=== PATIENT | female | born 1980 ===

== ENCOUNTER 2016-08-14 13:47 | Emergency (ER) | payer MEDICAID, OTHER ==
[2016-08-14 13:47] VITALS: BMI 26.4
[2016-08-14 14:50] VITALS: RESP 16; TEMP 98; O2SAT 98
--- NOTE | 2016-08-14 16:00 | ED PDOC ---
Syncope/Near Syncope/Dizzyness Time Seen by Provider: 08/14/16 15:41 Chief Complaint (Nursing): Dizziness/Lightheaded Chief Complaint (Provider): dizziness History Per: Patient History/Exam Limitations: no limitations Onset/Duration Of Symptoms: Days (x 2) Current Symptoms Are (Timing): Still Present Additional Complaint(s): Danielle Robledo is a 36 year old female, with a previous medical history of preeclampsia, who presents to the ED with complaints of dizziness ongoing for the past 2 days. Patient reports being approximately 8 weeks and stating symptoms are consistent with previous where she was diagnosed with preeclampsia. Patient denies any changes in vision, seizures or swelling in the extremities. PMD: Past Medical History Reviewed: Historical Data, Nursing Documentation, Vital Signs Vital Signs: Last Vital Signs Temp 98.0 F 08/14/16 14:48 Pulse 91 H 08/14/16 14:48 Resp 16 08/14/16 14:48 BP 142/86 08/14/16 14:48 Pulse Ox 98 08/14/16 14:48 - Medical History PMH: Denies: Diabetes, Hepatitis, HIV, HTN, Seizures, Sexually Transmitted Disease Other PMH: preeclampsia - Family History Family History: States: Unknown Family Hx - Social History Current smoker - smoking cessation education provided: No Alcohol: None Drugs: Denies - Home Medications Home Medications: Ambulatory Orders Medication Instructions Recorded Vitamins6 [ 1 tab PO QAM #30 tab 12/25/14 Vitamin] - Allergies Allergies/Adverse Reactions: Allergies Allergy/AdvReac Type Severity Reaction Status Date / Time No Known Allergies Allergy Verified 08/14/16 14:47 Review of Systems ROS Statement: Except As Marked, All Systems Reviewed And Found Negative Eyes: Negative for: Vision Change Musculoskeletal: Negative for: Other (swelling in the extremities) Neurological: Positive for: Dizziness. Negative for: Seizures Physical Exam - Reviewed Nursing Documentation Reviewed: Yes Vital Signs Reviewed: Yes - Physical Exam Appears: Positive for: Well, Non-toxic, No Acute Distress Head Exam: Positive for: ATRAUMATIC, NORMAL INSPECTION, NORMOCEPHALIC Skin: Positive for: Normal Color, Warm, Dry Cardiovascular/Chest: Positive for: Regular Rate, Rhythm Respiratory: Positive for: CNT, Normal Breath Sounds Gastrointestinal/Abdominal: Positive for: Normal Exam, Bowel Sounds, Soft. Negative for: Tenderness Extremity: Positive for: Normal ROM, Capillary Refill (< 2 seconds ). Negative for: Tenderness, Pedal Edema, Calf Tenderness, Deformity, Swelling (in all extremities) Neurologic/Psych: Positive for: Alert, Oriented - Laboratory Results Result Diagrams: 08/14/16 16:00 08/14/16 16:00 - ECG O2 Sat by Pulse Oximetry: 98 (RA) Pulse Ox Interpretation: Normal Medical Decision Making Medical Decision Making: Initial Impression: Dizziness Initial Plan: * blood type and screen * Beta-HCG quantitative * labs * urinalysis * US OB transvaginal * reevaluation Scribe Attestation: Documented by Flakita Womack, acting as a scribe for Idris Batres MD. Provider Scribe Attestation: All medical record entries made by the Scribe were at my direction and personally dictated by me. I have reviewed the chart and agree that the record accurately reflects my personal performance of the history, physical exam, medical decision making, and the department course for this patient. I have also personally directed, reviewed, and agree with the discharge instructions and disposition. Disposition - Clinical Impression Clinical Impression: - Patient ED Disposition Is Patient to be Admitted: No Counseled Patient/Family Regarding: Studies Performed, Diagnosis, Need For Followup - Disposition [facility] Disposition: Routine/Home Disposition Time: 19:32 Condition: FAIR Instructions: (ED)
[2016-08-14 16:45] LABS: BASO % 0.2 % (0.0-2.0); EOS % 0.3 % (0.0-4.0); HEMATOCRIT 40.2 % (34.0-47.0); LYMPH # 2.5 K/uL (1.0-4.3); LYMPH % 20.4 % (20.0-40.0); MEAN CELL VOLUME 88.3 fl (81.0-99.0); MEAN CORPUSCULAR HEMOGLOBIN 29.3 pg (27.0-31.0); MEAN CORPUSCULAR HGB CONC 33.2 g/dL (33.0-37.0); MEAN PLATELET VOLUME 8.9 fl (7.2-11.7); MONO % 8.4 % (0.0-10.0); NEUT # 8.6 K/uL (1.8-7.0); NEUT % 70.7 % (50.0-75.0); NRBC % 0.1 % (0.0-0.0); RED CELL DISTRIBUTION WIDTH 13.7 % (11.5-14.5); WHITE BLOOD COUNT 12.2 K/uL (4.8-10.8)
[2016-08-14 16:52] LABS: RBC URINE 1 /hpf (0-3); URINE BACTERIA FEW (<OCC); URINE BILIRUBIN NEGATIVE (NEGATIVE); URINE BLOOD NEGATIVE (NEGATIVE); URINE COLOR YELLOW (YELLOW); URINE GLUCOSE (UA) NEG (Normal); URINE KETONE NEGATIVE (NEGATIVE); URINE LEUKOCYTE ESTERASE NEG Leu/uL (Negative); URINE PROTEIN NEGATIVE (NEGATIVE); URINE UROBILINOGEN 0.2-1.0 mg/dL (0.2-1.0); WBC URINE 1 /hpf (0-5)
[2016-08-14 16:54] VITALS: BP 124/71; PULSE 68
[2016-08-14 16:58] LABS: ALB/GLOB RATIO 1.2 (1.0-2.1); ALKALINE PHOSPHATASE 63 U/L (38-126); ALT/SGPT 43 U/L (9-52); AST/SGOT 31 U/L (14-36); BILIRUBIN,TOTAL 0.4 mg/dl (0.2-1.3); BLOOD UREA NITROGEN 6 mg/dl (7-17); CARBON DIOXIDE 24 mmol/L (22-30); CHLORIDE 104 mmol/L (98-107); GFR AFRICAN-AMERICAN > 60; GLUCOSE,RANDOM 83 mg/dL (65-105); POTASSIUM 3.7 MMOL/L (3.6-5.0); SODIUM 137 mmol/l (132-148); TOTAL PROTEIN 7.7 G/DL (6.3-8.2)
--- NOTE | 2016-08-15 11:04 | US ---
PROCEDURE: OB Pelvic Ultrasound HISTORY: r/o ectopic COMPARISON: None available. FINDINGS: UTERUS: Fetus A: Single Live intrauterine gestation. CRL equivalent to 8 weeks and 4 days wks/days gestatioin pole and yolk sac are visualized. Date of delivery (Ultrasound estimated) : 03/22/2017 Heart rate: 164 bpm. Karol-gestational hemorrhage: None. Fetus B: Single Live intrauterine gestation. CRL equivalent to 8 weeks and 5 days gestatioin pole and yolk sac are visualized. Date of delivery (Ultrasound estimated) : 03/10/2017 Heart rate: 163 bpm. Karol-gestational hemorrhage: None. Uterus measures 11.7 x 5.5 x 0.0 cm. No mass CERVIX: Long and closed. No cervical abnormality seen. RIGHT OVARY: Not visualized. LEFT OVARY: Measures 2.1 x 1.4 x 2.1 cm. No mass. Normal flow. FREE FLUID: None. OTHER FINDINGS: None. IMPRESSION: Twin live intrauterine gestations. The expected date of delivery 4 for fetus A is 03/22/2017 and corresponds with the clinical dates. The expected date of delivery for fetus B is 03/10/2017 and there is a discrepancy with the clinical dates of about 11 days. Clinical follow-up is advised.
== END 2016-08-14 19:53 | disposition home or self-care (01) ==
LOC: H.ER 13:47
DX: R42 Dizziness and giddiness (principal); Z33.1 Pregnant state, incidental

== ENCOUNTER 2017-02-12 15:38 | Inpatient (IN) | payer MEDICAID, SELFPAY ==
[2017-02-12 16:20] VITALS: BMI 30.5
[2017-02-12] MEDS ORDERED: ceFAZolin 2 GM in Sodium Chloride 0.9% 100 ML IVPB ONE (17:00)
[2017-02-12] MEDS ORDERED: Lactated Ringer's 1,000 ML IV SCH ×4 (17:00→22:51)
[2017-02-12] MEDS ORDERED: Oxytocin 30 units/LR 500ML 30 U/500 ML BAG IV ONE (17:28)
[2017-02-12 17:34] LABS: BASO % 0.5 % (0.0-2.0); EOS % 0.6 % (0.0-4.0); HEMATOCRIT 39.8 % (34.0-47.0); LYMPH # 2.2 K/uL (1.0-4.3); LYMPH % 31.9 % (20.0-40.0); MEAN CORPUSCULAR HEMOGLOBIN 30.9 pg (27.0-31.0); MEAN CORPUSCULAR HGB CONC 33.2 g/dL (33.0-37.0); MEAN PLATELET VOLUME 10.6 fl (7.2-11.7); MONO # 0.6 K/uL (0.0-0.8); NEUT # 4.1 K/uL (1.8-7.0); NRBC % 0.1 % (0.0-0.0); RED CELL DISTRIBUTION WIDTH 14.6 % (11.5-14.5)
[2017-02-12] MEDS ORDERED: HYDROmorphone 1 mg/ml ISec IVP PRN (17:56)
[2017-02-12] MEDS ORDERED: Morphine 1 mg/ml preservative-free Inj(Duramorph) ONE (18:04)
[2017-02-12] MEDS ORDERED: Phenylephrine 10 mg/ml Inj ONE (18:04)
[2017-02-12] MEDS ORDERED: HYDROmorphone 0.5 mg/0.5 ml ISec IVP PRN ×2 (18:15→22:51)
[2017-02-12] MEDS ORDERED: Oxycodone/Acetaminophen 5/325 mg Tab PO PRN ×3 (22:32→22:51)
--- NOTE | 2017-02-13 00:30 | OBADHP ---
Datetime: 02/12/2017 17:30 Admit Comment, IP Provider: 37 yo at 34.3weeks with twin IUP sent to [facility] from [facility] in [place] due to contractions and pre-term labor. Pt's GRECIA is 03/23/17. Last vis it today in clinic, last u/s was yesterday. Reports movement, denies vaginal bleeding or loss o f fluid. Last sexual activity more than 1 month ago. Past OBhx: 1 NVD at 34 weeks due to preeclamsia. Denies other medical or any surgical hx. Social hx: denies tobacco, alcohol, drug use. Meds: vitamins, aspirin Allergies: NKDA Care: [facility]. care complicated by admission to [facility] for 1 mo on 12/25/16 because cervical length connor surament of 2.5 cm. During admission pt was managed with IV fluids, magnesium sulfate tocolysis, ster oids. Rhogam given on 12/26/16. ROS: denies CP, sob, nausea, headache, dizziness A: 37 yo at 34.3 wks twin gestation in pre-term labor P: admit to inpatient; initiate protocol Discussed with Dr. Andrews Addendum: I saw and examined patient at presentation. Patient 3-4 cm at presentation and patient complaining of increasing intensity of contractions. Discussed with patient the need for delivery due to active labor. Discussed with patient the risks, benefits, alternatives of delivery as well as the risks of prematurity. All patient questions answered. Both anesthesia and neonatology contacted. All patient questions answered Extremities - PN: Normal Abdomen - PN: Normal Back - PN: Normal Breast - PN: Not Done Lungs - PN: Normal Heart - PN: Normal Thyroid - PN: Not Done Neurologic - PN: Normal HEENT - PN: Normal General - PN: Normal IP Hx Assessment: The History has been Reviewed and is Current Vital Signs Provider: Reviewed IP Chief Complaint: Uterine contractions Dilatation, Provider: 3 Genitourinary Exam: Normal DTRs - PN: Not Done EGA AdmitDate IP: 34.3 IP Adm Impression: , intrauterine IP Admit Plan: Admit to unit; Initiate Section protocol
--- NOTE | 2017-02-13 00:38 | OBDS ---
DELIVERY PERSONNEL Delivery Doctor: Joe Andrews MD [employer] Business Intelligence Developer: Kary Joya RN Anesthesiologist: Mariela Mathis MD MATERNAL INFORMATION Delivery Anesthesia: Spinal Medications in Delivery: pitocin 30 units/500 ml, LR, Ancef 2 gms Estimated Blood Loss (ml): 800 Placenta Cultured: No Maternal Complications: None Provider Comments: Primary low flap transverse section via Pfannenstiel incision, bilateral tubal ligation in bilateral salpingectomy fashion. Patient delivered a viable infant male's Twin A: Male, vertex presentation, Apgars 9/9 Twin B: Male, complete breech presentation, Apgars 9/9 Normal uterus, normal tubes and ovaries bilaterally Estimated blood loss 800 mL Fluids 1500 mL lactated Ringer's Urine output 300 mL of clear urine No complications Patient tolerated procedure well LABOR SUMMARY EDC: 03/23/2017 00:00 No. Babies in Womb: 2 Attempted: No Labor Anesthesia: None LABOR INFORMATION Reason for Induction: Not Applicable Oxytocin: N/A Group B Beta Strep: N/A Antibiotics # of Doses: 1 Antibiotics Time of Last Dose: 1809 Steroids Given: Full Course; > 24 Hours before Delivery Reason Steroids Not Administered: Maternal Indication MEMBRANES Membranes Rupture Method: Artificial Rupture of Membranes: 02/12/2017 18:40 Length of Rupture (hrs): 0.00 Amniotic Fluid Color: Clear Amniotic Fluid Amount: Moderate Amniotic Fluid Odor: Normal STAGES OF LABOR Stage 3 hrs: 0 Stage 3 min: 1 CSECTION DELIVERY Primary Indication: Multiple Gestation CSection Urgency: Emergency CSection Incidence: Primary Labor: Labor Elective: Nonelective CSection Incision: Lower Uterine Transverse Other Sterilization Procedure: bilateral salpingectomy Uterine Closure: Double-layer closure BABY A INFORMATION Delivery Date/Time: 02/12/2017 18:40 Method of Delivery: Born in Route : No : N/A Forceps: N/A Vacuum Extraction: N/A Shoulder Dystocia : No SHOULDER DYSTOCIA BABY A Infant Delivery Date/Time: 02/12/2017 18:40 PRESENTATION/POSITION BABY A Presentation: Cephalic Cephalic Presentation: Vertex Breech Presentation: N/A PLACENTA INFORMATION BABY A Placenta Delivery Time : 02/12/2017 18:41 Placenta Method of Delivery: Manual Removal Placenta Status: Delivered SCORES BABY A Heart Rate 1 min: >100 bpm Resp Effort 1 min: Good Cry Reflex Irritability 1 min: Cough or Sneeze or Pulls Away Muscle Tone 1 min: Active Motion Color 1 min: Body [place], Extremities Blue Resuscitation Effort 1 min: Tactile Stimulation SCORE 1 MIN: 9 Heart Rate 5 min: >100 bpm Resp Effort 5 min: Good Cry Reflex Irritability 5 min: Cough or Sneeze or Pulls Away Muscle Tone 5 min: Active Motion Color 5 min: Body [place], Extremities Blue Resuscitation Effort 5 min: Tactile Stimulation SCORE 5 MIN: 9 INFANT INFORMATION BABY A Gestational Age at Delivery: 34.3 Gestational Status: Outcome : Liveborn Condition : Stable Sex: Male IDENTIFICATION/MEDS BABY A ID Band Number: [id number] ID Band Location: Left Leg; Left Arm WEIGHT/LENGTH BABY A Infant Birthweight (gms): 2445 Weight (lb): 5 Infant Weight (oz): 6 CORD INFORMATION BABY A No. Cord Vessels: 3 Nuchal Cord : N/A Nuchal Cord Other: N/A True Knot: N/A Infant Cord pH Baby Arterial: N/A Cord pH Baby Venous: N/A Cord Blood Taken: Yes Banking/Donate Info: N/A Infant Suction: Mouth; Nose ASSESSMENT BABY A Infant Complications: None Physical Findings at Delivery: Within Normal Limits Infant Respirations: Appears Normal Magnetic Grinder Operator/ALS Called : Yes Care By: Dr Ryder Transferred To: Nursery BABY B INFORMATION Delivery Date/Time: 02/12/2017 18:42 Method of Delivery : Born in Route : No : N/A Forceps : N/A Vacuum Extraction: N/A Shoulder Dystocia : No SHOULDER DYSTOCIA BABY B Infant Delivery Date/Time: 02/12/2017 18:42 PRESENTATION/POSITION BABY B Presentation : Breech Cephalic Position : N/A ROM/PLACENTA INFO BABY B Rupture of Membranes: 02/12/2017 18:40 Length of Rupture (hrs): 0.03 Placenta Delivery Time : 02/12/2017 18:43 Placenta Method of Delivery: Manual Removal Placental Status : Delivered SCORES BABY B Heart Rate 1 min: >100 bpm Resp Effort 1 min: Good Cry Reflex Irritability 1 min: Cough or Sneeze or Pulls Away Muscle Tone 1 min: Active Motion Color 1 min: Body [place], Extremities Blue SCORE 1 MIN: 9 Heart Rate 5 min: >100 bpm Resp Effort 5 min: Good Cry Reflex Irritability 5 min: Cough or Sneeze or Pulls Away Muscle Tone 5 min: Active Motion Color 5 min: Body [place], Extremities Blue SCORE 5 MIN: 9 INFORMATION BABY B Gestational Age at Delivery: 34.3 Gestational Status : Infant Outcome : Liveborn Condition : Stable Infant Sex : Male IDENTIFICATION/MEDS BABY B ID Band Number : [id number] ID Band Location : Left Leg; Left Arm WEIGHT/LENGTH BABY B Infant Birthweight (gms): 2400 Weight (lb) : 5 Weight (oz): 5 CORD INFORMATION BABY B No. Cord Vessels : 3 Nuchal Cord : N/A Nuchal Cord Other: N/A True Knot : N/A Infant Cord pH Arterial: N/A Cord pH Venous: N/A Cord Blood Taken : Yes Banking/Donate Info : N/A Suction : Mouth; Nose ASSESSMENT BABY B Infant Complications : None Physical Findings at Delivery: Within Normal Limits Respirations : Appears Normal Magnetic Grinder Operator/ALS Called : Yes Infant Care By : Dr Ryder Transfer To: [facility]
[2017-02-13 05:29] LABS: HEMATOCRIT 35.2 % (34.0-47.0); MEAN CORPUSCULAR HGB CONC 33.4 g/dL (33.0-37.0); RED CELL DISTRIBUTION WIDTH 14.5 % (11.5-14.5); WHITE BLOOD COUNT 13.1 K/uL (4.8-10.8)
[2017-02-13] MEDS: Oxycodone/Acetaminophen 5/325 mg Tab PO PRN (20:55)
[2017-02-14] MEDS: Oxycodone/Acetaminophen 5/325 mg Tab PO PRN (03:06)
[2017-02-14] MEDS ORDERED: Influenza Vaccine 18yr & older 0.5 ML/45 MCG SYR IM ONE (06:00)
--- NOTE | 2017-02-14 09:44 | OBPPN ---
Datetime: 02/14/2017 09:42 PP Pain Prov: Within normal limits PP Nausea Prov: Denies PP Flatus Prov: Yes PP BM Prov: No PP Breasts Prov: Not Done PP Heart Prov: Normal PP Lungs Prov: Normal PP Abdomen/Uterus Prov: Normal PP Lochia Prov: Not Done PP Vulva/Perineum Prov: Not Done PP CVA Tenderness Prov: Normal PP Extremities Prov: Normal PP C/S Incision Prov: Normal PP Plan Prov: Continue present management Vital Signs Provider PP: Reviewed; Within Normal Limits Datetime: 02/14/2017 06:16 PP Progress Prov: Normal PP Impression Prov: Normal progression PP Progress Note Prov: POD #2 S: 37y/o now s/p twin delivery with BTL seen and examined at bedside. No acute ove rnight events. Pt reports mild pelvic pain controlled with pain meds. OOB/Ambulation without dizzines s. Breast/Bottle feeding both infants without difficulty. Tolerating regular diet well. Lochia is sim ilar to menses volume. Voiding freely with no blood noted. No BM, + gas per rectum. Denies fever/chil ls, diarrhea, [place]/vomiting, CP/SOB, lightheadedness, calf pain. Declined circumcision for both infants O: BP 139/84 HR 85, Tmax 98.9 (no hypertensive episodes overnight) Post H/H: 11.7/35.2 Blood Type: 0 negative Both babies RH positive Rubella: immune, Flu shot updated Physical exam: General: A_O HEENT: White Sclera, pink conjunctiva, oral mucosa moist Breast: enjorged/non tender/no lesions CVS: RRR, nrml S1, S2, no murmurs Lungs: Clear to auscultation BL Abdomen: non distended, +BS, firm fundus @ umbilical level. Soft, appropriate TTP. Incision clean, erythema, active bleeding, or discharge Neuro/Psych: AAO x3, preserved affect and mood Assessment: 37 Y/o now s/p c section delivery on date 02/13 18:00 w/o complications. Pt afebrile overnigh t, tolerating pain with meds, adequate urine output. Doing well on POPD#2. No discussion on contracep tion as patient had BTL during c section. Plan: Rhogam administered yesterday with no complications Tolerating regular diet well Percocet 5/325mg 1-2 tablets po q6 for mod/sev pain Ibuprofen 600mg 1 tabZofran 4gm prn for nausea Encourage and ambulation Senakot 17.2mg qHS Will schedule f/u appt at [facility] Anticipated D/C to home on 02/16; Scripts in chart Nasim Millard, PGY1 OB Hospitalist note. On rounds this morning, I saw and examined this patient. Agree with note. LAWRENCE SILVERMAN IP PP Procedures: None
--- NOTE | 2017-02-15 09:57 | OBDCSUM ---
Datetime: 02/15/2017 09:08 Discharged to, Provider: Home Follow up at, Provider: [facility] Disch Instr Activity: Normal activity; May be up to bathroom; May be up for meals; May Shower Disch Instr Diet: Regular Discharge Instructions, Provider: Routine instructions given Discharge Diagnosis, Provider: Delivery Discharge Time: 02/15/2017 09:56 Follow up in weeks, Provider: in 1-2 weeks Disch Referrals: None Contraception discussed, Prov: Yes Disch Activity Restrictions: No exercising; No lifting; No driving; Minimize stair-climbing; No sexu al activity; Nothing in vagina - [place], tampons, douche Contraception after Delivery: Tubal Ligation
--- NOTE | 2017-02-15 09:57 | OBPPN ---
Datetime: 02/15/2017 08:55 PP Pain Prov: Within normal limits PP Nausea Prov: Denies PP Flatus Prov: Yes PP BM Prov: No PP Breasts Prov: Not Done PP Heart Prov: Normal PP Abdomen/Uterus Prov: Normal PP Lochia Prov: Normal PP Vulva/Perineum Prov: Normal PP CVA Tenderness Prov: Normal PP Extremities Prov: Normal PP C/S Incision Prov: Normal PP Progress Prov: Normal PP Impression Prov: Normal progression PP Plan Prov: Continue present management; Discharge PP Progress Note Prov: 37 y/o now POD #3 s/p twin delivery with BTL seen and examined at bedside this morn ing. Denies any acute overnight events. Pt reports mild pelvic pain controlled with pain meds. OOB/Am bulation without dizziness. Breast/Bottle feeding both infants without difficulty. Tolerating regular diet well. Lochia is similar to menses volume. Voiding freely with no blood noted. No BM, + gas per rectum. Denies fever/chills, diarrhea, nausea/vomiting, CP/SOB, lightheadedness or calf pain. Declined circumcision for both infants Physical Exam: General: A_O, resting comfortably in bed, NAD HEENT: white sclera, pink conjunctiva, oral mucosa moist. Lungs: CTA B/L, no wheezing, rhonchi or rales CVS: RRR, S1, S2 NL ABD: ND, +BS; Incision: clean, dry and intact. no induration, erythema or fluctuation. no dehiscence EXT: no edema, negative Dwayne's sign, calves nontender Neuro/psych: AAOX3, no grossly focal deficit, preserved affect and mood. Assessment: 37 y/o now s/p c section on POD #3 w/o complications. Pt is doing well. Plan: Discharge to home today PNV 1 po daily Ibuprofen 600 mg 1 tab po prn q6 if mild/moderate pain Percocet 5/325mg 1 tab po prn q6h if severe pain Senokot S 50/8.6 one tab PO HS qdaily Encourage and ambulatory Follow up at your clinic in 1 week. Sultan Abrams, PGY1 Addendum by Dr. vanessa: Patient evaluated independently and I agree with the above. Patient for dis charge IP PP Procedures: Tubal Ligation; Rhogam Vital Signs Provider PP: Reviewed; Within Normal Limits
[2017-02-15 17:45] VITALS: BP 125/72; PULSE 75; RESP 20; TEMP 98.2; O2SAT 98
== END 2017-02-15 12:55 | disposition home or self-care (01) | DRG 765 ==
LOC: H.EROB2 15:38 → H.L&D 17:08 → H.OB/GYN 02-13 00:09
PROVIDERS: ADMIT Obstetrics & Gynecology; ATTEND Obstetrics & Gynecology
PROC: 0UB70ZZ Excision of Bilateral Fallopian Tubes, Open Approach (ICD-10-PCS; principal; 2017-02-12)
PROC: 10D00Z1 Extraction of Products of Conception, Low, Open Approach (ICD-10-PCS; 2017-02-12)
PROC: 4A1HXCZ Monitoring of Products of Conception, Cardiac Rate, External Approach (ICD-10-PCS; 2017-02-12)
DX: O30.003 Twin pregnancy, unspecified number of placenta and unspecified number of amniotic sacs, third trimester (principal); O60.14X0 Preterm labor third trimester with preterm delivery third trimester, not applicable or unspecified; Z37.2 Twins, both liveborn; O32.1XX0 Maternal care for breech presentation, not applicable or unspecified; O66.0 Obstructed labor due to shoulder dystocia; Z3A.34 34 weeks gestation of pregnancy